=== PATIENT | female | born 1945 | race Caucasian/White ===

== ENCOUNTER 2018-05-17 14:39 | Emergency (ER) | payer MEDICARE, OTHER ==
[~2018-05-17] VITALS: Ht 152.4 cm; Wt 56.0 kg
[~2018-05-17 14:39] MED LIST: HYDR-565 PO; HYDR-569 PO
[2018-05-17 14:40] VITALS: BP 207/77
== END 2018-05-17 16:00 | disposition home or self-care (01) ==
LOC: ER 14:39
DX: J20.9 Acute bronchitis, unspecified (principal); I10 Essential (primary) hypertension; J44.9 Chronic obstructive pulmonary disease, unspecified; Z86.19 Personal history of other infectious and parasitic diseases; Z90.49 Acquired absence of other specified parts of digestive tract; Z98.890 Other specified postprocedural states; Z88.8 Allergy status to other drugs, medicaments and biological substances; Z79.899 Other long term (current) drug therapy
CPT/HCPCS: 93005; 99283